=== PATIENT | female | born 2000 | race African-American/Black ===

== ENCOUNTER 2024-04-19 19:02 | Emergency (ER) | payer OTHER ==
[2024-04-19 19:12] VITALS: BP 122/77; PULSE 83; RESP 16; TEMP 98.8; BMI 49.4
[2024-04-19] MEDS ORDERED: ACETAMINOPHEN INJECTION 100 ML IVPB ONE (20:26)
[2024-04-19] MEDS ORDERED: ONDANSETRON 4 MG/2 ML VIAL ONE (20:27)
[2024-04-19] MEDS: ACETAMINOPHEN 1000 MG/100 ML BAG IVPB ONE (20:50)
[2024-04-19] MEDS: ONDANSETRON 4 MG/2 ML VIAL IVPUSH ONE (20:50)
[2024-04-19] MEDS: SODIUM CHLORIDE 0.9% 500 ML INFUS.BAG IV ONE (20:50)
[2024-04-19 20:53] LABS: EOS % 0.4 % (0-4.5); HEMATOCRIT 36.1 % (32.4-45.2); HEMOGLOBIN 11.9 GM/dL (10.7-15.3); LYMPH % 29.7 % (8-40); MCH 26.6 pg (25.7-33.7); MEAN CELL VOLUME 80.4 fl (80-96); MONO % 6.2 % (3.8-10.2); NEUT % 62.7 % (42.8-82.8); PLATELET COUNT 279 10^3/uL (134-434); RBC 4.48 M/mm3 (3.60-5.2); RDW 14.1 % (11.6-15.6); WHITE BLOOD COUNT 8.6 K/mm3 (4.0-10.0)
[2024-04-19 20:56] LABS: EPI CELLS >36 /uL (0-25.1); HYALINE CASTS 1 /uL (0-3.1); PH,URINE 6.5 (5.0-8.0); URINE APPEARANCE CLEAR; URINE BACTERIA 819 /uL (0-1359); URINE BILIRUBIN NEGATIVE (NEGATIVE); URINE COLOR YELLOW; URINE GLUCOSE (UA) NEGATIVE (NEGATIVE); URINE KETONE TRACE (NEGATIVE); URINE LEUK ESTERASE TRACE (NEGATIVE); URINE NITRITE NEGATIVE (NEGATIVE); URINE PROTEIN TRACE (NEGATIVE); URINE RBC 9 /uL (0-23.9); URINE WBC 49 /uL (0-25.8)
[2024-04-19 21:20] LABS: ALBUMIN 3.3 g/dl (3.4-5.0); CALCIUM 9.1 mg/dL (8.5-10.1)
[2024-04-19 21:21] LABS: BLOOD UREA NITROGEN 10.4 mg/dL (7-18); MAGNESIUM 2.1 mg/dL (1.8-2.4)
[2024-04-19 21:24] LABS: CREATININE 0.8 mg/dL (0.55-1.3)
[2024-04-19 21:25] LABS: BILIRUBIN,TOTAL 0.4 mg/dL (0.2-1); TOT PROT 7.3 g/dl (6.4-8.2)
[2024-04-19] MEDS: CEPHALEXIN MONOHYDRATE 500 MG CAPSULE (UD) PO ONE (23:20)
[2024-04-19] MEDS ORDERED: CEPHALEXIN MONOHYDRATE 500 MG CAPSULE (UD) ONE (23:22)
== END 2024-04-20 00:06 | disposition home or self-care (01) ==
LOC: JER 19:02
PROC: 3E033NZ Introduction of Analgesics, Hypnotics, Sedatives into Peripheral Vein, Percutaneous Approach (ICD-10-PCS; principal; 2024-04-19)
PROC: 3E033GC Introduction of Other Therapeutic Substance into Peripheral Vein, Percutaneous Approach (ICD-10-PCS; 2024-04-19)
DX: O26.891 Other specified pregnancy related conditions, first trimester (principal); R10.31 Right lower quadrant pain; R11.0 Nausea; R42 Dizziness and giddiness; O26.811 Pregnancy related exhaustion and fatigue, first trimester; Z3A.01 Less than 8 weeks gestation of pregnancy; O23.41 Unspecified infection of urinary tract in pregnancy, first trimester; Z20.822 Contact with and (suspected) exposure to COVID-19
CPT/HCPCS: 0241U-QW; 36415; 76817-TC; 80053; 81003; 83735; 84702; 85025; 86850; 86900; 86901; 87086; 99284-25; J0131

== ENCOUNTER 2024-06-07 00:06 | Emergency (ER) | payer OTHER ==
[2024-06-07 00:33] VITALS: BP 129/74; PULSE 88; RESP 20; TEMP 99; BMI 49.6
[2024-06-07 01:37] LABS: BASO % 0.2 % (0-2.0); EOS % 0.2 % (0-4.5); EPI CELLS >36 /uL (0-25.1); HEMATOCRIT 33.5 % (32.4-45.2); HEMOGLOBIN 10.7 GM/dL (10.7-15.3); HYALINE CASTS 1 /uL (0-3.1); LYMPH % 20.4 % (8-40); MCH 26.2 pg (25.7-33.7); MCHC 32.1 g/dl (32.0-36.0); MEAN CELL VOLUME 81.6 fl (80-96); MEAN PLT VOLUME 8.9 fl (7.5-11.1); MONO % 5.5 % (3.8-10.2); NEUT % 73.7 % (42.8-82.8); PH,URINE 6.5 (5.0-8.0); PLATELET COUNT 251 10^3/uL (134-434); RDW 14.4 % (11.6-15.6); URINE APPEARANCE CLOUDY; URINE BACTERIA 1584 /uL (0-1359); URINE BILIRUBIN NEGATIVE (NEGATIVE); URINE COLOR YELLOW; URINE GLUCOSE (UA) NEGATIVE (NEGATIVE); URINE KETONE TRACE (NEGATIVE); URINE LEUK ESTERASE 1+ (NEGATIVE); URINE NITRITE NEGATIVE (NEGATIVE); URINE PROTEIN TRACE (NEGATIVE); URINE RBC 42 /uL (0-23.9); URINE WBC 191 /uL (0-25.8); WHITE BLOOD COUNT 12.5 K/mm3 (4.0-10.0)
[2024-06-07] MEDS ORDERED: ACETAMINOPHEN INJECTION 100 ML ONE (02:14)
[2024-06-07] MEDS: ACETAMINOPHEN 1000 MG/100 ML BAG IVPB ONE (02:19)
[2024-06-07] MEDS ORDERED: CEPHALEXIN MONOHYDRATE 500 MG CAPSULE (UD) ONE (02:59)
[2024-06-07] MEDS: CEPHALEXIN MONOHYDRATE 500 MG CAPSULE (UD) PO ONE (03:02)
== END 2024-06-07 03:39 | disposition home or self-care (01) ==
LOC: JER 00:06
PROC: 3E033NZ Introduction of Analgesics, Hypnotics, Sedatives into Peripheral Vein, Percutaneous Approach (ICD-10-PCS; principal; 2024-06-07)
DX: O20.9 Hemorrhage in early pregnancy, unspecified (principal); O26.891 Other specified pregnancy related conditions, first trimester; R10.30 Lower abdominal pain, unspecified; Z3A.13 13 weeks gestation of pregnancy
CPT/HCPCS: 36415; 76801-TC; 81003; 84702; 85025; 86850; 86900; 86901; 87086; 99284-25; J0131

== ENCOUNTER 2024-07-12 18:41 | Emergency (ER) | payer OTHER ==
[2024-07-12 18:50] VITALS: BP 108/71; PULSE 71; RESP 20; TEMP 98.3; BMI 41.9
[2024-07-12 21:19] LABS: EPI CELLS >36 /uL (0-25.1); HYALINE CASTS 1 /uL (0-3.1); URINE APPEARANCE CLEAR; URINE BACTERIA 392 /uL (0-1359); URINE BILIRUBIN NEGATIVE (NEGATIVE); URINE COLOR YELLOW; URINE GLUCOSE (UA) NEGATIVE (NEGATIVE); URINE KETONE NEGATIVE (NEGATIVE); URINE LEUK ESTERASE 2+ (NEGATIVE); URINE NITRITE NEGATIVE (NEGATIVE); URINE PROTEIN NEGATIVE (NEGATIVE); URINE RBC 5 /uL (0-23.9); URINE UROBILINOGEN 0.2 mg/dL (0.2-1.0); URINE WBC 40 /uL (0-25.8)
[2024-07-12] MEDS ORDERED: BISACODYL 5 MG TABLET.DR (FP) PO ONE (21:51)
[2024-07-12] MEDS ORDERED: ONDANSETRON 8 MG TABLET (FP) PO ONE (21:53)
[2024-07-12] MEDS ORDERED: IBUPROFEN 600 MG TABLET (FP) PO ONE (21:53)
[2024-07-12] MEDS ORDERED: NITROFURANTOIN MACROCRYSTAL 50 MG CAPSULE (FP) ONE (21:56)
[2024-07-12] MEDS ORDERED: BISACODYL 10 MG SUPP.RECT ONE (22:01)
[2024-07-12] MEDS: IBUPROFEN 600 MG TABLET (FP) PO ONE (22:04)
[2024-07-12] MEDS: NITROFURANTOIN MONOHYD/M-CRYST 100 MG CAPSULE PO ONE (22:05)
[2024-07-12] MEDS: ONDANSETRON *ODT* 4 MG TABLET SL ONE (22:05)
[2024-07-12] MEDS: BISACODYL 10 MG SUPP.RECT PR ONE (22:06)
== END 2024-07-12 22:17 | disposition home or self-care (01) ==
LOC: JER 18:41
DX: N30.00 Acute cystitis without hematuria (principal); K59.03 Drug induced constipation; T45.4X5A Adverse effect of iron and its compounds, initial encounter; R10.13 Epigastric pain
CPT/HCPCS: 81003; 99283-25; Q0162

== ENCOUNTER 2024-10-31 21:43 | Emergency (ER) | payer OTHER ==
[2024-10-31 21:49] VITALS: RESP 18; BMI 46.3
[2024-10-31] MEDS ORDERED: ONDANSETRON 4 MG/2 ML VIAL ONE (22:30)
[2024-10-31] MEDS: ONDANSETRON 4 MG/2 ML VIAL IVPUSH ONE (22:42)
[2024-10-31] MEDS: SODIUM CHLORIDE 0.9% 500 ML INFUS.BAG IV ONE (22:42)
[2024-10-31 22:51] LABS: BASO % 1.2 % (0-2.0); EOS % 0.4 % (0-4.5); HEMATOCRIT 36.9 % (32.4-45.2); HEMOGLOBIN 11.7 GM/dL (10.7-15.3); MCH 25.6 pg (25.7-33.7); MCHC 31.6 g/dl (32.0-36.0); MEAN CELL VOLUME 80.9 fl (80-96); MEAN PLT VOLUME 9.3 fl (7.5-11.1); MONO % 6.5 % (3.8-10.2); NEUT % 56.9 % (42.8-82.8); PLATELET COUNT 267 10^3/uL (134-434); RBC 4.57 M/mm3 (3.60-5.2); RDW 15.4 % (11.6-15.6); WHITE BLOOD COUNT 9.4 K/mm3 (4.0-10.0)
[2024-10-31 23:12] LABS: POTASSIUM 4.7 mmol/L (3.5-5.1)
[2024-10-31 23:16] LABS: ALBUMIN 3.4 g/dl (3.4-5.0); BLOOD UREA NITROGEN 13.4 mg/dL (7-18); CALCIUM 9.4 mg/dL (8.5-10.1)
[2024-10-31 23:19] LABS: CREATININE 0.8 mg/dL (0.55-1.3)
[2024-10-31 23:21] LABS: BILIRUBIN,TOTAL 0.4 mg/dL (0.2-1); TOT PROT 7.5 g/dl (6.4-8.2)
[2024-11-01 00:36] VITALS: BP 111/65; PULSE 76; TEMP 98.3
[2024-11-01 01:57] LABS: URINE APPEARANCE CLEAR; URINE BILIRUBIN NEGATIVE (NEGATIVE); URINE COLOR YELLOW; URINE GLUCOSE (UA) NEGATIVE (NEGATIVE); URINE KETONE TRACE (NEGATIVE); URINE LEUK ESTERASE NEGATIVE (NEGATIVE); URINE NITRITE NEGATIVE (NEGATIVE); URINE PROTEIN NEGATIVE (NEGATIVE); URINE UROBILINOGEN 0.2 mg/dL (0.2-1.0)
[2024-11-01] MEDS ORDERED: ACETAMINOPHEN 325 MG TABLET (FP) ONE (02:21)
[2024-11-01] MEDS: ACETAMINOPHEN 500 MG TABLET (FP) PO ONE (02:25)
== END 2024-11-01 02:47 | disposition home or self-care (01) ==
LOC: JER 21:43
PROC: 3E033GC Introduction of Other Therapeutic Substance into Peripheral Vein, Percutaneous Approach (ICD-10-PCS; principal; 2024-10-31)
DX: R42 Dizziness and giddiness (principal); R11.0 Nausea; R19.7 Diarrhea, unspecified; R10.9 Unspecified abdominal pain; R53.83 Other fatigue; Z20.822 Contact with and (suspected) exposure to COVID-19
CPT/HCPCS: 0241U-QW; 36415; 80053; 81003; 84703; 85025; 99284-25

== ENCOUNTER 2025-01-18 17:53 | Emergency (ER) | payer OTHER ==
[2025-01-18 18:12] VITALS: BP 117/77; PULSE 78; RESP 18; TEMP 98.8; BMI 42.9
[2025-01-18] MEDS ORDERED: ACETAMINOPHEN INJECTION 100 ML ONE (19:04)
[2025-01-18] MEDS ORDERED: METOCLOPRAMIDE HCL INJECTION 10 MG/2 ML VIAL ONE (19:04)
[2025-01-18] MEDS: SODIUM CHLORIDE 1,000 ML IV STA (19:05)
[2025-01-18] MEDS: ACETAMINOPHEN 1000 MG/100 ML BAG IVPB ONE (19:55)
[2025-01-18] MEDS: METOCLOPRAMIDE HCL INJECTION 10 MG/2 ML VIAL IVPUSH ONE (19:55)
== END 2025-01-18 21:21 | disposition home or self-care (01) ==
LOC: JER 17:53
PROC: 3E033NZ Introduction of Analgesics, Hypnotics, Sedatives into Peripheral Vein, Percutaneous Approach (ICD-10-PCS; principal; 2025-01-18)
PROC: 3E033GC Introduction of Other Therapeutic Substance into Peripheral Vein, Percutaneous Approach (ICD-10-PCS; 2025-01-18)
PROC: 3E0337Z Introduction of Electrolytic and Water Balance Substance into Peripheral Vein, Percutaneous Approach (ICD-10-PCS; 2025-01-18)
DX: R51.9 Headache, unspecified (principal); W06.XXXA Fall from bed, initial encounter
CPT/HCPCS: 0241U-QW; 70450-TC; 99285-25; J0131